=== PATIENT | male | born 1995 | race Two or more races ===

== ENCOUNTER 2019-02-03 15:11 | Emergency (ER) | payer OTHER ==
[~2019-02-03] VITALS: Ht 172.7 cm; Wt 72.6 kg
[2019-02-03 15:30] VITALS: BP 126/79
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
[2019-02-03] MEDS ORDERED: Acetaminophen 500mg (ES) tab ORAL ONE (16:15)
[2019-02-03] MEDS ORDERED: Methocarbamol 500mg tab ORAL ONE (16:15)
[2019-02-03] MEDS ORDERED: IBUPROFEN600 MG ORAL (16:51)
[2019-02-03] MEDS ORDERED: ROBAXIN-750750 MG PO (16:51)
[2019-02-03 16:55] VITALS: BP 126/79
== END 2019-02-03 16:55 | disposition home or self-care (01) ==
LOC: EMR 16:00
DX: M62.838 Other muscle spasm (principal); M79.601 Pain in right arm; M54.2 Cervicalgia; T14.8XXA Other injury of unspecified body region, initial encounter; Z88.0 Allergy status to penicillin; V43.62XA Car passenger injured in collision with other type car in traffic accident, initial encounter; Y92.410 Unspecified street and highway as the place of occurrence of the external cause
CPT/HCPCS: 99282